=== PATIENT | female | born 1960 | race Caucasian/White ===

== ENCOUNTER 2017-01-23 03:58 | Emergency (ER) | payer OTHER ==
[~2017-01-23] VITALS: Ht 162.6 cm; Wt 99.8 kg
[~2017-01-23 03:58] MED LIST: HYDR-971 PO; PANT40TA3 PO
[2017-01-23 04:31] LABS: BILIRUBIN,URINE NEGATIVE (NEG); GLUCOSE,URINE NEGATIVE (NEG); NITRITE,URINE NEGATIVE (NEG); PH,URINE 5.5; PROTEIN,URINE NEGATIVE (NEG-TRACE); UROBILINOGEN,URINE 0.2 mg/dL (0.2 mg/dL)
[2017-01-23 04:36] LABS: BACTERIA,URINE FEW /HPF (0-FEW); RBC,URINE 0 /HPF (0-2); SQUAMOUS EPITHELIAL CELL,UR MOD /LPF
--- NOTE | 2017-01-23 04:50 | PHYS DOC ---
Past Medical History Past Medical History: Anxiety, Diabetes-Type II Past Surgical History: Tonsillectomy Alcohol Use: None Drug Use: None Adult General Chief Complaint Chief Complaint: FLANK PAIN [facility] HPI Patient is a 56 year old female who presents with left flank pain for the past few days that is intermittent, shooting around to LUQ with movement, achy, sometimes severe but currently minimal. Symptoms started after an active lifting day. She denies f/c, n/v, dysuria, hematuria, diarrhea, constipation, chest pain, cough, dyspnea, rash, saddle anesthesia, bowel or bladder dysfunction. No prior history of kidney stones. Review of Systems Review of Systems Constitutional: Denies fever or chills [] Eyes: Denies change in visual acuity, redness, or eye pain [] HENT: Denies nasal congestion or sore throat [] Respiratory: Denies cough or shortness of breath [] Cardiovascular: No additional information not addressed in HPI [] GI: Denies abdominal pain, nausea, vomiting, bloody stools or diarrhea [] : Denies dysuria or hematuria [] Musculoskeletal: Denies joint pain [] Integument: Denies rash or skin lesions [] Neurologic: Denies headache, focal weakness or sensory changes [] Endocrine: Denies polyuria or polydipsia [] Allergies Allergies Allergies Coded Allergies Type Severity Reaction Last Updated Verified No Known Drug Allergies 04/02/14 No Physical Exam Physical Exam Constitutional: Well developed, well nourished, no acute distress, non-toxic appearance. [] HENT: Normocephalic, atraumatic, bilateral external ears normal, oropharynx moist, nose normal. [] Eyes: PERRLA, EOMI. [] Neck: Normal range of motion, supple. [] Cardiovascular:Heart rate regular rhythm [] Lungs & Thorax: Bilateral breath sounds clear to auscultation [] Abdomen: Bowel sounds normal, soft, no tenderness. [] Skin: Warm, dry, no erythema, no rash. [] Back: No midline spinal tenderness, no CVA tenderness. Has slight right mid back paraspinal tenderness [] Extremities: No tenderness, ROM intact, no edema. [] Neurologic: Alert and oriented X 3, normal motor function, normal sensory function, no focal deficits noted. [] Psychologic: Affect normal, judgement normal, mood normal. [] Current Patient Data Vital Signs Vital Signs Date Time Temp Pulse Resp B/P Pulse Ox O2 Delivery O2 Flow Rate FiO2 01/23/17 04:42 68 126/60 Room Air 01/23/17 04:09 99.0 16 94 99.0 Lab Values Laboratory Tests Test 01/23/17 04:20 Urine Collection Type Unknown Urine Color Yellow Urine Clarity Clear Urine pH 5.5 Urine Specific [place] 1.025 Urine Protein Negativemg/dL (NEG-TRACE) Urine Glucose (UA) Negativemg/dL (NEG) Urine Ketones (Stick) Negativemg/dL (NEG) Urine Blood Negative (NEG) Urine Nitrite Negative (NEG) Urine Bilirubin Negative (NEG) Urine Urobilinogen Dipstick 0.2mg/dL (0.2 mg/dL) Urine Leukocyte Esterase Small (NEG) Urine RBC 0/HPF (0-2) Urine WBC 11-20/HPF (0-4) Urine Squamous Epithelial Cells Mod/LPF Urine Bacteria Few/HPF (0-FEW) Urine Mucus Marked/LPF Radiology/Procedures Radiology/Procedures CT abdomen and pelvis without contrast IMPRESSION No apparent renal or ureteral stone. Mild inflammation is suggested adjacent to the proximal descending colon. Mild colitis or diverticulitis is possible, although the colon itself does not appear abnormal at this location. Primary epiploic appendagitis could give this appearance. Electronically signed by: Jesus Barnard (Jan 23, 2017 05:15:26) Course & Med Decision Making Course & Med Decision Making Pertinent Labs and Imaging studies reviewed. (See chart for details) Urine is likely poor specimen; will await culture. CT as above. Discussed supportive care for MSK pain vs epiploic appendagitis. Return precautions given. She understands and agrees with plan. Dragon Disclaimer Dragon Disclaimer This electronic medical record was generated, in whole or in part, using a voice recognition dictation system. Departure Departure Impression: Primary Impression: Left flank pain Disposition: HOME, SELF-CARE Condition: STABLE Referrals: ZORAIDA PEARSON MD (PCP) Patient Instructions: Back Pain, Adult, [id number] Additional Instructions: Take naproxen every 12 hours to help with pain. Follow up with your primary care doctor. Return for any concerns. Rosalino CABALLERO MD Jan 23, 2017 04:50
--- NOTE | 2017-01-23 05:17 | RAD ---
PROCEDURE CT abdomen and pelvis without contrast 01/23/2017. HISTORY Left flank pain. TECHNIQUE Helical noncontrast images were performed. Exposure: One or more of the following individualized dose reduction techniques were utilized for this exam: 1. Automated exposure control. 2. Adjustment of the mA and/or kV according to patient size. 3. Use of iterative reconstruction technique. COMPARISON FINDINGS The lung bases are clear. The liver and spleen are homogeneous in density and normal in configuration. Evaluation of the solid organs is limited by lack of IV contrast. The kidneys show no apparent mass, calcification or obstruction. The adrenal glands are not enlarged. The pancreas appears normal. No retroperitoneal or mesenteric adenopathy is seen. There is no apparent abdominal soft tissue mass. There is some haziness in the fat adjacent to the proximal descending colon. The colon itself at this location is not obviously abnormal. Images through the pelvis show no distal ureteral stone or obstruction. The bladder was not well distended, but appears normal. No pelvic or inguinal adenopathy is seen. The uterus contains a calcification probably indicating a fibroid. The uterus and adnexal structures otherwise appear normal for age. IMPRESSION No apparent renal or ureteral stone. Mild inflammation is suggested adjacent to the proximal descending colon. Mild colitis or diverticulitis is possible, although the colon itself does not appear abnormal at this location. Primary epiploic appendagitis could give this appearance. Electronically signed by: Jesus Barnard (Jan 23, 2017 05:15:26)
[2017-01-23 05:30] VITALS: BP 121/65
== END 2017-01-23 05:57 | disposition home or self-care (01) ==
LOC: ER 03:58
DX: R10.12 Left upper quadrant pain (principal); E11.9 Type 2 diabetes mellitus without complications
CPT/HCPCS: 74176; 81001; 87086; 99285-25